=== PATIENT | female | born 1995 | race African-American/Black ===

== ENCOUNTER 2017-01-14 05:21 | Emergency (ER) | payer OTHER ==
[2017-01-14] MEDS ORDERED: NORMAL SALINE 1000 ML 1,000 ML IV ONE (06:18)
[2017-01-14] MEDS ORDERED: ONDANSETRON HCL INJ/PF 4 MG/2 ML SDV IV ONE (06:56)
[2017-01-14] MEDS ORDERED: ONDANSETRON HCL INJ/PF 4 MG/2 ML SDV ONE (07:00)
[2017-01-14 07:08] LABS: ABSOLUTE LYMPHOCYTES (AUTO) 1.2 10^3/uL (0.5-4.7); ABSOLUTE MONOCYTES (AUTO) 0.3 10^3/uL (0.1-1.4); ABSOLUTE NEUT (AUTO) 3.1 10^3/uL (1.7-8.2); BASOPHILS % (AUTO) 0.8 % (0-2); EOSINOPHILS % (AUTO) 0.8 % (0-6); HEMATOCRIT 33.4 % (36.0-47.0); HEMOGLOBIN 11.2 g/dL (12.0-15.5); HGB HCT DIFFERENCE 0.2; LYMPHOCYTES % (AUTO) 26.5 % (13-45); MEAN CORPUSCULAR HEMOGLOBIN 31.2 pg (27.0-33.4); MEAN CORPUSCULAR HGB CONC 33.4 g/dL (32.0-36.0); MEAN CORPUSCULAR VOLUME 93 fl (80-97); MONOCYTES % (AUTO) 5.9 % (3-13); RED BLOOD COUNT 3.58 10^6/uL (3.72-5.28); RED CELL DISTRIBUTION WIDTH 13.3 % (11.5-14.0); WHITE BLOOD COUNT 4.7 10^3/uL (4.0-10.5)
[2017-01-14 07:25] LABS: ANION GAP 12 (5-19); BLOOD UREA NITROGEN 9 mg/dL (7-20); CARBON DIOXIDE 26 mmol/L (22-30); CHLORIDE 109 mmol/L (98-107); CREATININE RESULT 0.86 mg/dL (0.52-1.25); GLUCOSE 103 mg/dL (75-110); SODIUM 147.4 mmol/L (137-145)
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
[2017-01-14] MEDS ORDERED: KETOROLAC TROMETHAMINE INJ/PF 30 MG/1 ML SDV IV ONE (09:15)
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
[2017-01-14 10:02] VITALS: BP 130/83
== END 2017-01-14 10:01 | disposition home or self-care (01) ==
LOC: ER 05:21
DX: T14.8 Other injury of unspecified body region (principal); M54.2 Cervicalgia; R51 Headache; R10.9 Unspecified abdominal pain; M25.562 Pain in left knee; M25.462 Effusion, left knee; M25.559 Pain in unspecified hip; V49.50XA Passenger injured in collision with unspecified motor vehicles in traffic accident, initial encounter; Y93.84 Activity, sleeping; J45.909 Unspecified asthma, uncomplicated
CPT/HCPCS: 99284; 96361; 96374; 96375; 36415; 84703; 85025; 80048; 73560; 70450; 71260; 72125; 74177; L1830; J1885; J2405; J7030